=== PATIENT | male | born 1930 | race African-American/Black ===

== ENCOUNTER 2019-05-17 12:22 | Inpatient (IN) ==
[2019-05-17] MEDS ORDERED: PANTOPRAZOLE 40 MG VIAL IV STA (12:46)
[2019-05-17] MEDS ORDERED: SODIUM CHLORIDE 0.9% 500 ML IV STA (12:46)
[2019-05-17 13:06] LABS: Apearance,Urine CLEAR (Clear); Bilirubin,Urine Negative (Negative); Blood, Urine Negative (Negative); Glucose,Urine (UA) Negative (Negative); Ketones,Urine 20 mg/dL (Negative); Mucus,Urine Occasional /LPF (Occasional); Nitrite,Urine Negative (Negative); Protein,Urine Negative; RBC,Urine 3 /HPF (0-4); Squamous Epithelial Cell,Urine Occasional /HPF (0-10); Urine Color Yellow (Yellow); Urine Specific Gravity 1.015 (1.001-1.035); Urine Urobilinogen < 2.0 EU/DL (0.2-1.0)
[2019-05-17 13:22] LABS: Alanine Aminotransferase 11 U/L (16-61); Albumin 3.9 G/DL (3.4-5.0); Alkaline Phosphatase 100 U/L (45-117); Amylase 32 U/L (25-115); Aspartate Amino Transferase 14 U/L (0-37); Blood Urea Nitrogen 12 MG/DL (7-18); Calcium 9.4 MG/DL (8.5-10.1); Glucose 112 MG/DL (74-106); Osmolality,Calculated 273.8 MOS/KG (273-304); Total Protein 8.5 G/DL (6.4-8.3)
[2019-05-17 13:24] LABS: Troponin I < 0.015 NG/ML (0.00-0.045)
[2019-05-17 13:28] LABS: Basophils % 0.1 % (0.0-0.8); Hematocrit 27.2 VOL% (42.0-52.0); Hemoglobin 7.4 GM/DL (14.0-18.0); Immature Granulocytes % 0.7 %; Lymphocytes # 0.7 10*3/uL (1.4-4.0); Lymphocytes % 4.6 % (21.2-54.2); Mean Corpuscular HGB Conc 27.2 GM/DL (32-36); Mean Corpuscular Volume 71.2 FL (87-102); Mean Platelet Volume 9.8 FL (9.6-12.0); Monocytes % 4.9 % (1.7-12.7); Neutrophils % 89.7 % (38.7-73.9); Platelet Count 342 T/CUMM (130-400); Red Blood Count 3.82 MC/CUMM (3.8-5.5); Red Cell Distribution Width 20.8 % (9.3-17.3); White Blood Count 15.4 T/CUMM (4-12)
[2019-05-17] MEDS ORDERED: MAGNESIUM CITRATE 300 ML BOTTLE PO STA (14:27)
[2019-05-17 14:29] LABS: Band Neutrophils 1 % (0-10); Lymphocytes 3 % (20-55); Segmented Neutrophils 91 % (50-85); Total Cells Counted 100
[2019-05-17 14:30] LABS: Hypochromasia 2+; Microcytosis 1+
[2019-05-17 14:31] LABS: Helmet Cells Few; Ovalocytes Few; Target Cells 1+
[2019-05-17 14:32] LABS: Platelet Estimate Adequate; Poikilocytosis Few; Schistocytes Few
[2019-05-17] MEDS ORDERED: SODIUM CHLORIDE 0.9% 1,000 ML IV PRN (14:32)
[2019-05-17] MEDS ORDERED: ACETAMINOPHEN 325 MG TABLET PO PRN (14:39)
[2019-05-17] MEDS ORDERED: traZODone 50 MG TABLET PO PRN (14:39)
[2019-05-17] MEDS ORDERED: ZALEPLON 5 MG CAPSULE PO PRN (14:39)
[2019-05-17] MEDS ORDERED: diphenhydrAMINE CAP 25 MG CAPSULE PO PRN (14:39)
[2019-05-17] MEDS ORDERED: guaiFENesin/DM ER 600-30 MG TABLET PO PRN (14:39)
[2019-05-17] MEDS ORDERED: PROMETHAZINE 25 MG/1 ML VIAL IM PRN (14:39)
[2019-05-17] MEDS ORDERED: diphenhydrAMINE CAP 25 MG CAPSULE PO SCH (15:00)
[2019-05-17] MEDS ORDERED: ACETAMINOPHEN 325 MG TABLET PO SCH (15:00)
[2019-05-17] MEDS ORDERED: FUROSEMIDE 20 MG/2 ML VIAL IV SCH (15:00)
[2019-05-17] MEDS: ONDANSETRON 4 MG/2 ML VIAL IV PRN (21:15)
[2019-05-17] MEDS: DOCUSATE SODIUM 100 MG CAPSULE PO SCH (21:17)
[2019-05-17] MEDS: SODIUM CHLORIDE 0.45% 1,000 ML IV SCH (21:17)
[2019-05-18 05:21] LABS: Basophils % 0.1 % (0.0-0.8); Hemoglobin 7.6 GM/DL (14.0-18.0); Immature Granulocytes % 0.6 %; Lymphocytes # 0.6 10*3/uL (1.4-4.0); Lymphocytes % 3.9 % (21.2-54.2); Mean Corpuscular HGB Conc 29.2 GM/DL (32-36); Mean Corpuscular Volume 71.4 FL (87-102); Mean Platelet Volume 9.7 FL (9.6-12.0); Monocytes % 6.5 % (1.7-12.7); Neutrophils % 88.9 % (38.7-73.9); Platelet Count 298 T/CUMM (130-400); Red Blood Count 3.64 MC/CUMM (3.8-5.5); White Blood Count 16.3 T/CUMM (4-12)
[2019-05-18 05:54] LABS: % Iron Saturation 4.9 % (18-50)
[2019-05-18 05:55] LABS: Band Neutrophils 3 % (0-10); Lymphocytes 2 % (20-55); Segmented Neutrophils 91 % (50-85); Total Cells Counted 100
[2019-05-18 05:56] LABS: Hypochromasia 2+; Microcytosis 1+; Ovalocytes Slight; Platelet Estimate Adequate
[2019-05-18 05:58] LABS: Alanine Aminotransferase < 9 U/L (16-61); Albumin 3.2 G/DL (3.4-5.0); Alkaline Phosphatase 87 U/L (45-117); Aspartate Amino Transferase 9 U/L (0-37); Blood Urea Nitrogen 8 MG/DL (7-18); Calcium 8.9 MG/DL (8.5-10.1); Glucose 117 MG/DL (74-106); HDL Cholesterol 57 MG/DL (40-60); Osmolality,Calculated 271.8 MOS/KG (273-304); Risk Ratio 2.18; Total Protein 7.6 G/DL (6.4-8.3); Triglycerides 42 MG/DL (2-150); VLDL CHOLESTEROL 8.4 MG/DL
[2019-05-18 06:00] LABS: Folate 14.6 NG/ML (5.4-24.0)
[2019-05-18] MEDS ORDERED: LACTATED RINGERS 1,000 ML IV SCH (08:00)
[2019-05-18] MEDS ORDERED: LIDOCAINE 2% 5 ML VIAL ONE (09:00)
[2019-05-18] MEDS ORDERED: PROPOFOL 200 MG/20 ML VIAL IV ONE (09:00)
[2019-05-18] MEDS ORDERED: ETOMIDATE 20 MG/10 ML VIAL IV ONE (09:00)
[2019-05-18] MEDS ORDERED: POTASSIUM CHLORIDE RIDER 10 MEQ in PREMIX 1 EACH IV ONE (09:33)
[2019-05-18] MEDS: DOCUSATE SODIUM 100 MG CAPSULE PO SCH ×2 (12:08→21:34)
[2019-05-18] MEDS: PANTOPRAZOLE 40 MG TABLET PO SCH (12:08)
[2019-05-18] MEDS: FINASTERIDE 5 MG TABLET PO SCH (12:08)
[2019-05-18] MEDS: SODIUM CHLORIDE 0.45% 1,000 ML IV SCH (16:04)
[2019-05-18] MEDS: CYANOCOBALAMIN 1000 MCG/1 ML VIAL SUBCUT SCH (16:15)
[2019-05-18] MEDS: PIPERACILLIN/TAZOBACTAM 3,375 MG in SODIUM CHLORIDE 0.9% 100 ML IV SCH (18:09)
[2019-05-18 18:16] LABS: Hematocrit 29.4 VOL% (42.0-52.0); Hemoglobin 8.6 GM/DL (14.0-18.0)
[2019-05-19] MEDS: PIPERACILLIN/TAZOBACTAM 3,375 MG in SODIUM CHLORIDE 0.9% 100 ML IV SCH ×3 (02:15→17:43)
[2019-05-19] MEDS: SODIUM CHLORIDE 0.45% 1,000 ML IV SCH (06:32)
[2019-05-19 07:15] LABS: Calcium 9.1 MG/DL (8.5-10.1); Osmolality,Calculated 270.8 MOS/KG (273-304)
[2019-05-19 07:16] LABS: Basophils % 0.3 % (0.0-0.8); Eosinophils % 0.3 % (0.00-10.9); Hematocrit 28.7 VOL% (42.0-52.0); Hemoglobin 8.5 GM/DL (14.0-18.0); Immature Granulocytes % 0.3 %; Immature Granulocytes Absolute 0.05 #; Lymphocytes # 0.7 10*3/uL (1.4-4.0); Lymphocytes % 4.7 % (21.2-54.2); Mean Corpuscular HGB Conc 29.6 GM/DL (32-36); Mean Corpuscular Volume 73.6 FL (87-102); Mean Platelet Volume 10.1 FL (9.6-12.0); Monocytes % 3.3 % (1.7-12.7); Neutrophils % 91.1 % (38.7-73.9); Platelet Count 284 T/CUMM (130-400); Red Cell Distribution Width 21.8 % (9.3-17.3); White Blood Count 15.7 T/CUMM (4-12)
[2019-05-19 07:17] LABS: Albumin 2.7 G/DL (3.4-5.0); Bilirubin,Total 2.8 MG/DL (0.2-1.0); Calcium 8.7 MG/DL (8.5-10.1); Osmolality,Calculated 267.1 MOS/KG (273-304); Total Protein 6.9 G/DL (6.4-8.3)
[2019-05-19] MEDS ORDERED: POTASSIUM CHLORIDE 20 MEQ TABLET PO ONE (09:34)
[2019-05-19] MEDS ORDERED: MAGNESIUM SULF RIDER 2 GM in PREMIX 1 EACH IV ONE (09:34)
[2019-05-19] MEDS: DOCUSATE SODIUM 100 MG CAPSULE PO SCH ×2 (09:35→20:11)
[2019-05-19] MEDS: PANTOPRAZOLE 40 MG TABLET PO SCH (09:35)
[2019-05-19] MEDS: CYANOCOBALAMIN 1000 MCG/1 ML VIAL SUBCUT SCH (09:35)
[2019-05-19] MEDS: FINASTERIDE 5 MG TABLET PO SCH (09:35)
[2019-05-19 10:22] LABS: Hypochromasia 3+; Lymphocytes 4 % (20-55); Microcytosis Slight; Poikilocytosis 1+; Segmented Neutrophils 91 % (50-85); Total Cells Counted 100
[2019-05-19 10:23] LABS: Acanthocytes Few; Ovalocytes Few; Platelet Estimate Normal; Polychromasia Slight; Spherocytes Few
[2019-05-19] MEDS ORDERED: MAGNESIUM CITRATE 300 ML BOTTLE PO ONE (16:00)
[2019-05-20] MEDS: PIPERACILLIN/TAZOBACTAM 3,375 MG in SODIUM CHLORIDE 0.9% 100 ML IV SCH ×3 (02:21→17:25)
[2019-05-20 05:34] LABS: Basophils % 0.4 % (0.0-0.8); Eosinophils # 0.2 10*3/uL (0.0-0.87); Eosinophils % 1.9 % (0.00-10.9); Hematocrit 27.5 VOL% (42.0-52.0); Immature Granulocytes % 0.5 %; Immature Granulocytes Absolute 0.05 #; Lymphocytes % 9.2 % (21.2-54.2); Mean Corpuscular HGB Conc 29.1 GM/DL (32-36); Mean Corpuscular Volume 74.3 FL (87-102); Mean Platelet Volume 9.3 FL (9.6-12.0); Monocytes % 5.3 % (1.7-12.7); Neutrophils % 82.7 % (38.7-73.9); Platelet Count 269 T/CUMM (130-400); Red Cell Distribution Width 21.9 % (9.3-17.3); White Blood Count 10.5 T/CUMM (4-12)
[2019-05-20 06:08] LABS: Alanine Aminotransferase < 9 U/L (16-61); Albumin 2.5 G/DL (3.4-5.0); Alkaline Phosphatase 77 U/L (45-117); Aspartate Amino Transferase 13 U/L (0-37); Blood Urea Nitrogen 11 MG/DL (7-18); Calcium 8.9 MG/DL (8.5-10.1); Glucose 82 MG/DL (74-106); Osmolality,Calculated 274.5 MOS/KG (273-304); Total Protein 6.6 G/DL (6.4-8.3)
[2019-05-20] MEDS: DOCUSATE SODIUM 100 MG CAPSULE PO SCH ×2 (09:06→20:40)
[2019-05-20] MEDS: PANTOPRAZOLE 40 MG TABLET PO SCH (09:06)
[2019-05-20] MEDS: CYANOCOBALAMIN 1000 MCG/1 ML VIAL SUBCUT SCH (09:06)
[2019-05-20] MEDS: FINASTERIDE 5 MG TABLET PO SCH (09:07)
[2019-05-20] MEDS: FERROUS SULFATE ER 140 MG TABLET PO SCH (09:07)
[2019-05-20] MEDS ORDERED: BISACODYL 5 MG TABLET PO ONE (12:00)
[2019-05-20] MEDS: SODIUM CHLORIDE 0.45% 1,000 ML IV SCH ×2 (15:25→23:50)
[2019-05-20] MEDS: POTASSIUM CHLORIDE 20 MEQ TABLET PO PRN (15:32)
[2019-05-20] MEDS ORDERED: POLYETHYLENE GLYCOL POWDER 255 GM BOTTLE PO ONE (18:00)
[2019-05-21] MEDS: PIPERACILLIN/TAZOBACTAM 3,375 MG in SODIUM CHLORIDE 0.9% 100 ML IV SCH (03:29)
[2019-05-21 05:38] LABS: Basophils % 0.6 % (0.0-0.8); Eosinophils # 0.3 10*3/uL (0.0-0.87); Eosinophils % 4.6 % (0.00-10.9); Hematocrit 28.2 VOL% (42.0-52.0); Hemoglobin 8.1 GM/DL (14.0-18.0); Immature Granulocytes % 0.4 %; Immature Granulocytes Absolute 0.03 #; Lymphocytes # 1.1 10*3/uL (1.4-4.0); Lymphocytes % 16.3 % (21.2-54.2); Mean Corpuscular HGB Conc 28.7 GM/DL (32-36); Mean Corpuscular Volume 74.4 FL (87-102); Mean Platelet Volume 9.2 FL (9.6-12.0); Monocytes % 9.4 % (1.7-12.7); Neutrophils % 68.7 % (38.7-73.9); Platelet Count 285 T/CUMM (130-400); Red Blood Count 3.79 MC/CUMM (3.8-5.5); Red Cell Distribution Width 22.2 % (9.3-17.3); White Blood Count 6.8 T/CUMM (4-12)
[2019-05-21 06:02] LABS: Hypochromasia 2+
[2019-05-21 06:03] LABS: Anisocytosis 1+; Microcytosis 1+; Ovalocytes Few; Spherocytes Slight; Target Cells Slight
[2019-05-21 06:04] LABS: Platelet Estimate Normal
[2019-05-21 06:13] LABS: Albumin 2.6 G/DL (3.4-5.0); Bilirubin,Total 0.9 MG/DL (0.2-1.0); Calcium 8.8 MG/DL (8.5-10.1); Osmolality,Calculated 272.5 MOS/KG (273-304); Total Protein 6.9 G/DL (6.4-8.3)
[2019-05-21] MEDS ORDERED: POLYETHYLENE GLYCOL POWDER 255 GM BOTTLE PO ONE (08:52)
[2019-05-21] MEDS: PANTOPRAZOLE 40 MG TABLET PO SCH (09:26)
[2019-05-21] MEDS: FINASTERIDE 5 MG TABLET PO SCH (09:26)
[2019-05-21] MEDS: DOCUSATE SODIUM 100 MG CAPSULE PO SCH ×2 (09:26→20:42)
[2019-05-21] MEDS: CYANOCOBALAMIN 1000 MCG/1 ML VIAL SUBCUT SCH (09:27)
[2019-05-21] MEDS: FERROUS SULFATE ER 140 MG TABLET PO SCH (09:31)
[2019-05-21] MEDS: AMPICILLIN INJ 1,000 MG in SODIUM CHLORIDE 0.9% 100 ML IV SCH ×3 (13:17→21:26)
[2019-05-21] MEDS: SODIUM CHLORIDE 0.45% 1,000 ML IV SCH ×2 (17:56→19:55)
[2019-05-22] MEDS: AMPICILLIN INJ 1,000 MG in SODIUM CHLORIDE 0.9% 100 ML IV SCH (04:15)
[2019-05-22 05:14] LABS: PT Patient Result 11.2 SECS
[2019-05-22 05:16] LABS: Calcium 9.3 MG/DL (8.5-10.1); Osmolality,Calculated 274.4 MOS/KG (273-304)
[2019-05-22 05:31] LABS: Basophils # 0.1 10*3/uL (0.0-0.2); Basophils % 1.4 % (0.0-0.8); Eosinophils # 0.5 10*3/uL (0.0-0.87); Hemoglobin 8.8 GM/DL (14.0-18.0); Immature Granulocytes % 0.5 %; Immature Granulocytes Absolute 0.03 #; Lymphocytes # 1.2 10*3/uL (1.4-4.0); Lymphocytes % 20.6 % (21.2-54.2); Mean Corpuscular HGB Conc 28.4 GM/DL (32-36); Mean Corpuscular Volume 75.4 FL (87-102); Mean Platelet Volume 9.8 FL (9.6-12.0); Monocytes % 11.2 % (1.7-12.7); Neutrophils % 58.3 % (38.7-73.9); Platelet Count 292 T/CUMM (130-400); Red Blood Count 4.11 MC/CUMM (3.8-5.5); Red Cell Distribution Width 22.5 % (9.3-17.3); White Blood Count 5.6 T/CUMM (4-12)
[2019-05-22 06:01] LABS: Anisocytosis 1+; Hypochromasia 2+; Microcytosis 1+
[2019-05-22 06:02] LABS: Ovalocytes Few; Platelet Estimate Normal; Target Cells Slight
[2019-05-22] MEDS ORDERED: LIDOCAINE 2% 5 ML VIAL ONE (09:00)
[2019-05-22] MEDS ORDERED: PROPOFOL 200 MG/20 ML VIAL IV ONE (09:00)
[2019-05-22] MEDS: AMPICILLIN/SULBACTAM 3,000 MG in SODIUM CHLORIDE 0.9% 100 ML IV SCH ×3 (17:29→21:36)
[2019-05-22] MEDS: DOCUSATE SODIUM 100 MG CAPSULE PO SCH ×2 (17:30→20:51)
[2019-05-22] MEDS: SODIUM CHLORIDE 0.45% 1,000 ML IV SCH (17:40)
[2019-05-22] MEDS: PANTOPRAZOLE 40 MG TABLET PO SCH (17:46)
[2019-05-22] MEDS: FINASTERIDE 5 MG TABLET PO SCH (17:46)
[2019-05-22] MEDS: FERROUS SULFATE ER 140 MG TABLET PO SCH (17:47)
[2019-05-22] MEDS: CYANOCOBALAMIN 1000 MCG/1 ML VIAL SUBCUT SCH (17:47)
[2019-05-23] MEDS: AMPICILLIN/SULBACTAM 3,000 MG in SODIUM CHLORIDE 0.9% 100 ML IV SCH ×4 (03:54→22:17)
[2019-05-23 05:04] LABS: Basophils # 0.1 10*3/uL (0.0-0.2); Basophils % 0.9 % (0.0-0.8); Eosinophils # 0.3 10*3/uL (0.0-0.87); Eosinophils % 4.9 % (0.00-10.9); Hematocrit 28.3 VOL% (42.0-52.0); Hemoglobin 8.2 GM/DL (14.0-18.0); Immature Granulocytes % 0.5 %; Immature Granulocytes Absolute 0.03 #; Lymphocytes # 1.1 10*3/uL (1.4-4.0); Lymphocytes % 17.5 % (21.2-54.2); Mean Corpuscular Volume 74.7 FL (87-102); Mean Platelet Volume 9.5 FL (9.6-12.0); Monocytes % 10.4 % (1.7-12.7); Neutrophils % 65.8 % (38.7-73.9); Platelet Count 315 T/CUMM (130-400); Red Blood Count 3.79 MC/CUMM (3.8-5.5); Red Cell Distribution Width 22.2 % (9.3-17.3); White Blood Count 6.3 T/CUMM (4-12)
[2019-05-23 05:17] LABS: Albumin 2.8 G/DL (3.4-5.0); Bilirubin,Total 0.8 MG/DL (0.2-1.0); Calcium 9.4 MG/DL (8.5-10.1); Osmolality,Calculated 271.5 MOS/KG (273-304); Total Protein 6.9 G/DL (6.4-8.3)
[2019-05-23 06:19] LABS: Anisocytosis 1+
[2019-05-23 06:20] LABS: Hypochromasia 1+; Platelet Estimate Adequate; Target Cells Few
[2019-05-23] MEDS: FERROUS SULFATE ER 140 MG TABLET PO SCH (09:07)
[2019-05-23] MEDS: PANTOPRAZOLE 40 MG TABLET PO SCH (09:07)
[2019-05-23] MEDS: FINASTERIDE 5 MG TABLET PO SCH (09:07)
[2019-05-23] MEDS: DOCUSATE SODIUM 100 MG CAPSULE PO SCH ×2 (09:07→20:28)
[2019-05-23] MEDS: CYANOCOBALAMIN 1000 MCG/1 ML VIAL SUBCUT SCH (09:08)
[2019-05-23 11:45] LABS: Total Protein (Chem) 8.1 G/DL (6.4-8.3)
[2019-05-23] MEDS: SODIUM CHLORIDE 0.45% 1,000 ML IV SCH (20:29)
[2019-05-24] MEDS: AMPICILLIN/SULBACTAM 3,000 MG in SODIUM CHLORIDE 0.9% 100 ML IV SCH ×3 (04:13→18:58)
[2019-05-24 05:12] LABS: Basophils # 0.1 10*3/uL (0.0-0.2); Basophils % 1.3 % (0.0-0.8); Eosinophils # 0.3 10*3/uL (0.0-0.87); Hemoglobin 8.2 GM/DL (14.0-18.0); Immature Granulocytes % 0.4 %; Immature Granulocytes Absolute 0.02 #; Lymphocytes # 1.1 10*3/uL (1.4-4.0); Lymphocytes % 20.1 % (21.2-54.2); Mean Corpuscular HGB Conc 29.3 GM/DL (32-36); Mean Corpuscular Volume 74.7 FL (87-102); Mean Platelet Volume 9.6 FL (9.6-12.0); Monocytes % 9.9 % (1.7-12.7); Neutrophils % 63.3 % (38.7-73.9); Platelet Count 322 T/CUMM (130-400); Red Blood Count 3.75 MC/CUMM (3.8-5.5); Red Cell Distribution Width 22.4 % (9.3-17.3); White Blood Count 5.6 T/CUMM (4-12)
[2019-05-24 05:42] LABS: Osmolality,Calculated 270.7 MOS/KG (273-304)
[2019-05-24 05:43] LABS: Band Neutrophils 1 % (0-10); Eosinophils 2 % (0-10); Lymphocytes 16 % (20-55); Total Cells Counted 100
[2019-05-24 05:44] LABS: Hypochromasia 3+; Platelet Estimate Normal
[2019-05-24 05:45] LABS: Burr Cells Few; Ovalocytes 2+; Poikilocytosis Few; Schistocytes Few
[2019-05-24 05:46] LABS: Segmented Neutrophils 75 % (50-85)
[2019-05-24] MEDS ORDERED: fentaNYL 100 MCG/2 ML VIAL ONE (08:07)
[2019-05-24] MEDS ORDERED: MIDAZOLAM 2 MG/2 ML VIAL ONE (08:07)
[2019-05-24 08:10] LABS: Albumin (SPE) Rel % 57.9 %; Alpha 1 (SPE) Rel % 3.1 %; Alpha 2 (SPE) Rel % 8.9 %; Beta (SPE) Rel % 8.9 %; Gamma (SPE) Rel % 21.2 %
[2019-05-24 08:24] LABS: Albumin (SPE) 4.7 G/DL (3.2-5.3); Alpha 1 (SPE) 0.3 G/DL (0.1-0.4); Alpha 2 (SPE) 0.7 G/DL (0.4-1.0); Beta (SPE) 0.7 G/DL (0.5-1.1); Gamma (SPE) 1.7 G/DL (0.7-1.7)
[2019-05-24] MEDS ORDERED: DEXAMETHASONE 4 MG/1 ML VIAL ONE (09:00)
[2019-05-24] MEDS ORDERED: EPINEPHrine 1 MG/ML VIAL ONE (09:00)
[2019-05-24] MEDS ORDERED: BUPIVACAINE 0.5% 50 ML VIAL ONE (09:00)
[2019-05-24] MEDS ORDERED: SODIUM CHLORIDE 0.9% 100 ML IV ONE (09:01)
[2019-05-24] MEDS ORDERED: MICROFIBRILLAR COLLAGEN POWDER 1 GM CAN TOP ONE (11:00)
[2019-05-24] MEDS: SODIUM CHLORIDE 0.45% 1,000 ML IV SCH (11:26)
[2019-05-24] MEDS: DOCUSATE SODIUM 100 MG CAPSULE PO SCH ×2 (11:26→21:55)
[2019-05-24] MEDS: CYANOCOBALAMIN 1000 MCG/1 ML VIAL SUBCUT SCH (11:27)
[2019-05-24] MEDS: PANTOPRAZOLE 40 MG TABLET PO SCH (11:27)
[2019-05-24] MEDS: FINASTERIDE 5 MG TABLET PO SCH (11:27)
[2019-05-24] MEDS: FERROUS SULFATE ER 140 MG TABLET PO SCH (11:27)
[2019-05-24] MEDS ORDERED: ONDANSETRON 4 MG/2 ML VIAL IV PRN (11:45)
[2019-05-24] MEDS ORDERED: HYDROmorphone 2 MG/1 ML VIAL ONE (11:48)
[2019-05-24] MEDS ORDERED: ONDANSETRON 4 MG/2 ML VIAL ONE ×2 (11:48→12:21)
[2019-05-24] MEDS: HYDROmorphone 2 MG/1 ML VIAL IV PRN ×4 (11:48→12:03)
[2019-05-24 11:54] LABS: Apearance,Urine CLEAR (Clear); Bilirubin,Urine Negative (Negative); Blood, Urine Negative (Negative); Glucose,Urine (UA) Negative (Negative); Ketones,Urine 5 mg/dL (Negative); Nitrite,Urine Negative (Negative); Protein,Urine Negative; RBC,Urine <1 /HPF (0-4); Squamous Epithelial Cell,Urine Occasional /HPF (0-10); Urine Color Straw (Yellow); Urine Specific Gravity 1.009 (1.001-1.035); Urine Urobilinogen < 2.0 EU/DL (0.2-1.0); WBC,Urine <1 /HPF (0-6)
[2019-05-24 12:20] LABS: Immuno Free Light Chain Kappa 5.44 MG/DL (0.33-1.94); Immuno Free Light Chain Lambda 2.33 MG/DL (0.57-2.63); Immuno Free Light Chain Ratio 2.33 MG/DL (0.26-1.65)
[2019-05-24] MEDS ORDERED: KETAMINE 500 MG/10 ML VIAL ONE (12:21)
[2019-05-24] MEDS ORDERED: LACTATED RINGERS 1,000 ML IV ONE (12:21)
[2019-05-24] MEDS ORDERED: NEOSTIGMINE 10 MG/10 ML VIAL ONE (12:21)
[2019-05-24] MEDS ORDERED: SEVOFLURANE 1 UNIT/15 MINUTE INH ONE (12:21)
[2019-05-24] MEDS ORDERED: PROPOFOL 200 MG/20 ML VIAL IV ONE (12:21)
[2019-05-24] MEDS ORDERED: ROCURONIUM 100 MG/10 ML VIAL IV ONE (12:21)
[2019-05-24] MEDS ORDERED: GLYCOPYRROLATE 0.4 MG/2 ML VIAL ONE (12:21)
[2019-05-24] MEDS ORDERED: MORPHINE 4 MG/1 ML VIAL IV PRN (12:36)
[2019-05-24 13:16] LABS: Hematocrit 33.2 VOL% (42.0-52.0)
[2019-05-24 13:17] LABS: Hemoglobin 9.3 GM/DL (14.0-18.0)
[2019-05-24] MEDS: DEXTROSE 5% NACL 0.9% 1,000 ML IV SCH ×2 (13:25→21:33)
[2019-05-24 15:37] LABS: Total Protein 24 Hr Ur Result 315 MG/24HR (0-149.1); Total Volume,Urine 2425 ML (400-2000)
[2019-05-24] MEDS ORDERED: hydrALAZINE 20 MG/1 ML VIAL IV PRN (17:49)
[2019-05-24 19:59] LABS: Apearance,Urine CLEAR (Clear); Bilirubin,Urine Negative (Negative); Blood, Urine Moderate mg/dL (Negative); Glucose,Urine (UA) Negative (Negative); Ketones,Urine 5 mg/dL (Negative); Mucus,Urine Occasional /LPF (Occasional); Nitrite,Urine Negative (Negative); Protein,Urine Negative; RBC,Urine 24 /HPF (0-4); Squamous Epithelial Cell,Urine Occasional /HPF (0-10); Urine Color Yellow (Yellow); Urine Specific Gravity 1.016 (1.001-1.035); Urine Urobilinogen < 2.0 EU/DL (0.2-1.0); WBC,Urine 22 /HPF (0-6)
[2019-05-24 21:34] LABS: Hematocrit 32.8 VOL% (42.0-52.0)
[2019-05-24 21:36] LABS: Hemoglobin 9.1 GM/DL (14.0-18.0)
[2019-05-25] MEDS: AMPICILLIN/SULBACTAM 3,000 MG in SODIUM CHLORIDE 0.9% 100 ML IV SCH ×4 (00:22→19:42)
[2019-05-25] MEDS: SODIUM CHLORIDE 0.45% 1,000 ML IV SCH (00:40)
[2019-05-25 03:25] LABS: Basophils % 0.2 % (0.0-0.8); Hematocrit 28.2 VOL% (42.0-52.0); Hemoglobin 8.1 GM/DL (14.0-18.0); Immature Granulocytes % 0.4 %; Immature Granulocytes Absolute 0.05 #; Lymphocytes # 0.9 10*3/uL (1.4-4.0); Lymphocytes % 7.5 % (21.2-54.2); Mean Corpuscular HGB Conc 28.7 GM/DL (32-36); Mean Platelet Volume 9.2 FL (9.6-12.0); Monocytes % 8.4 % (1.7-12.7); Neutrophils % 83.5 % (38.7-73.9); Platelet Count 321 T/CUMM (130-400); Red Blood Count 3.76 MC/CUMM (3.8-5.5); Red Cell Distribution Width 22.1 % (9.3-17.3); White Blood Count 11.5 T/CUMM (4-12)
[2019-05-25 03:46] LABS: Calcium 8.7 MG/DL (8.5-10.1); Osmolality,Calculated 275.7 MOS/KG (273-304)
[2019-05-25 04:15] LABS: Hypochromasia 1+
[2019-05-25 04:16] LABS: Ovalocytes Slight; Platelet Estimate Adequate
[2019-05-25] MEDS: DEXTROSE 5% NACL 0.9% 1,000 ML IV SCH ×3 (06:22→15:28)
[2019-05-25] MEDS: PANTOPRAZOLE 40 MG TABLET PO SCH (09:15)
[2019-05-25] MEDS: DOCUSATE SODIUM 100 MG CAPSULE PO SCH ×2 (09:15→20:46)
[2019-05-25] MEDS: FINASTERIDE 5 MG TABLET PO SCH (09:15)
[2019-05-25] MEDS: CYANOCOBALAMIN 1000 MCG/1 ML VIAL SUBCUT SCH (09:15)
[2019-05-25] MEDS: FERROUS SULFATE ER 140 MG TABLET PO SCH (09:15)
[2019-05-25 09:32] LABS: 24 Hr Protein (Bench) 315 MG/24HR (0-149.1)
[2019-05-26] MEDS: AMPICILLIN/SULBACTAM 3,000 MG in SODIUM CHLORIDE 0.9% 100 ML IV SCH ×4 (00:43→18:26)
[2019-05-26] MEDS: DEXTROSE 5% NACL 0.9% 1,000 ML IV SCH ×2 (02:55→13:36)
[2019-05-26 05:06] LABS: Basophils % 0.2 % (0.0-0.8); Eosinophils # 0.1 10*3/uL (0.0-0.87); Eosinophils % 1.2 % (0.00-10.9); Hematocrit 27.1 VOL% (42.0-52.0); Immature Granulocytes % 0.5 %; Immature Granulocytes Absolute 0.04 #; Lymphocytes # 0.8 10*3/uL (1.4-4.0); Lymphocytes % 8.8 % (21.2-54.2); Mean Corpuscular HGB Conc 29.5 GM/DL (32-36); Mean Corpuscular Volume 75.5 FL (87-102); Mean Platelet Volume 9.8 FL (9.6-12.0); Monocytes % 8.7 % (1.7-12.7); Neutrophils % 80.6 % (38.7-73.9); Platelet Count 279 T/CUMM (130-400); Red Blood Count 3.59 MC/CUMM (3.8-5.5); Red Cell Distribution Width 22.4 % (9.3-17.3); White Blood Count 8.5 T/CUMM (4-12)
[2019-05-26 05:43] LABS: Albumin 2.3 G/DL (3.4-5.0); Bilirubin,Total 0.7 MG/DL (0.2-1.0); Calcium 8.6 MG/DL (8.5-10.1); Osmolality,Calculated 274.5 MOS/KG (273-304); Total Protein 6.1 G/DL (6.4-8.3)
[2019-05-26] MEDS: DOCUSATE SODIUM 100 MG CAPSULE PO SCH ×2 (09:18→20:23)
[2019-05-26] MEDS: ENOXAPARIN 40 MG/0.4 ML SYRINGE SUBCUT SCH (09:18)
[2019-05-26] MEDS: PANTOPRAZOLE 40 MG TABLET PO SCH (09:19)
[2019-05-26] MEDS: FINASTERIDE 5 MG TABLET PO SCH (09:19)
[2019-05-26] MEDS: FERROUS SULFATE ER 140 MG TABLET PO SCH (09:19)
[2019-05-27] MEDS: AMPICILLIN/SULBACTAM 3,000 MG in SODIUM CHLORIDE 0.9% 100 ML IV SCH ×4 (00:40→18:33)
[2019-05-27] MEDS: DEXTROSE 5% NACL 0.9% 1,000 ML IV SCH ×3 (01:53→23:20)
[2019-05-27 05:21] LABS: Basophils % 0.4 % (0.0-0.8); Eosinophils # 0.1 10*3/uL (0.0-0.87); Eosinophils % 1.5 % (0.00-10.9); Hematocrit 27.7 VOL% (42.0-52.0); Hemoglobin 8.1 GM/DL (14.0-18.0); Immature Granulocytes % 0.4 %; Immature Granulocytes Absolute 0.03 #; Lymphocytes # 0.8 10*3/uL (1.4-4.0); Lymphocytes % 10.9 % (21.2-54.2); Mean Corpuscular HGB Conc 29.2 GM/DL (32-36); Mean Corpuscular Volume 75.5 FL (87-102); Mean Platelet Volume 9.8 FL (9.6-12.0); Monocytes % 8.6 % (1.7-12.7); Neutrophils % 78.2 % (38.7-73.9); Platelet Count 331 T/CUMM (130-400); Red Blood Count 3.67 MC/CUMM (3.8-5.5); Red Cell Distribution Width 22.4 % (9.3-17.3); White Blood Count 7.1 T/CUMM (4-12)
[2019-05-27] MEDS: ONDANSETRON 4 MG/2 ML VIAL IV PRN (06:08)
[2019-05-27 06:59] LABS: Anisocytosis 2+; Hypochromasia 2+; Platelet Estimate Normal; Poikilocytosis 1+
[2019-05-27] MEDS: FINASTERIDE 5 MG TABLET PO SCH (08:44)
[2019-05-27] MEDS: DOCUSATE SODIUM 100 MG CAPSULE PO SCH ×2 (08:45→21:02)
[2019-05-27] MEDS: PANTOPRAZOLE 40 MG TABLET PO SCH (08:45)
[2019-05-27] MEDS: FERROUS SULFATE ER 140 MG TABLET PO SCH (08:45)
[2019-05-27] MEDS: ENOXAPARIN 40 MG/0.4 ML SYRINGE SUBCUT SCH (08:48)
[2019-05-28] MEDS: AMPICILLIN/SULBACTAM 3,000 MG in SODIUM CHLORIDE 0.9% 100 ML IV SCH ×4 (01:05→19:26)
[2019-05-28] MEDS: PANTOPRAZOLE 40 MG TABLET PO SCH (10:02)
[2019-05-28] MEDS: DOCUSATE SODIUM 100 MG CAPSULE PO SCH ×2 (10:02→20:48)
[2019-05-28] MEDS: ENOXAPARIN 40 MG/0.4 ML SYRINGE SUBCUT SCH (10:02)
[2019-05-28] MEDS: FERROUS SULFATE ER 140 MG TABLET PO SCH (10:03)
[2019-05-28] MEDS: FINASTERIDE 5 MG TABLET PO SCH (10:03)
[2019-05-28] MEDS: DEXTROSE 5% NACL 0.9% 1,000 ML IV SCH ×2 (10:29→19:27)
[2019-05-28 10:40] LABS: Basophils % 0.6 % (0.0-0.8); Red Cell Distribution Width 22.4 % (9.3-17.3)
[2019-05-28 10:44] LABS: Eosinophils # 0.2 10*3/uL (0.0-0.87); Eosinophils % 3.5 % (0.00-10.9); Hematocrit 24.8 VOL% (42.0-52.0); Immature Granulocytes % 0.4 %; Immature Granulocytes Absolute 0.02 #; Lymphocytes # 0.8 10*3/uL (1.4-4.0); Lymphocytes % 14.4 % (21.2-54.2); Mean Corpuscular HGB Conc 29.4 GM/DL (32-36); Mean Corpuscular Volume 76.1 FL (87-102); Mean Platelet Volume 9.3 FL (9.6-12.0); Monocytes % 8.3 % (1.7-12.7); Neutrophils % 72.8 % (38.7-73.9); Platelet Count 321 T/CUMM (130-400); Red Blood Count 3.26 MC/CUMM (3.8-5.5); White Blood Count 5.4 T/CUMM (4-12)
[2019-05-28 10:45] LABS: Hemoglobin 7.3 GM/DL (14.0-18.0)
[2019-05-28 10:58] LABS: Hypochromasia 1+; Platelet Estimate Adequate
[2019-05-28 11:58] LABS: Calcium 8.2 MG/DL (8.5-10.1); Osmolality,Calculated 271.7 MOS/KG (273-304)
[2019-05-28] MEDS ORDERED: SODIUM CHLORIDE 0.9% 1,000 ML IV PRN (14:49)
[2019-05-28] MEDS ORDERED: FUROSEMIDE 20 MG/2 ML VIAL IV PRN (14:49)
[2019-05-28] MEDS ORDERED: MAGNESIUM SULF RIDER 2 GM in PREMIX 1 EACH IV PRN (14:55)
[2019-05-28] MEDS ORDERED: MAGNESIUM SULF RIDER 4 GM in PREMIX 1 EACH IV PRN (14:55)
[2019-05-28] MEDS: POTASSIUM BICARB EFFERVESCENT 25 MEQ TABLET PO SCH ×2 (15:28→22:00)
[2019-05-28] MEDS: POTASSIUM CHLORIDE 20 MEQ TABLET PO PRN ×3 (16:15→20:48)
[2019-05-29] MEDS ORDERED: FUROSEMIDE 20 MG/2 ML VIAL IV PRN (01:34)
[2019-05-29] MEDS: AMPICILLIN/SULBACTAM 3,000 MG in SODIUM CHLORIDE 0.9% 100 ML IV SCH ×3 (05:05→16:37)
[2019-05-29] MEDS: POTASSIUM CHLORIDE 20 MEQ TABLET PO PRN (05:05)
[2019-05-29 07:57] LABS: Basophils % 0.4 % (0.0-0.8); Eosinophils # 0.2 10*3/uL (0.0-0.87); Eosinophils % 2.3 % (0.00-10.9); Hematocrit 31.8 VOL% (42.0-52.0); Immature Granulocytes % 0.3 %; Immature Granulocytes Absolute 0.03 #; Lymphocytes # 1.3 10*3/uL (1.4-4.0); Lymphocytes % 13.1 % (21.2-54.2); Mean Corpuscular HGB Conc 30.8 GM/DL (32-36); Mean Corpuscular Volume 77.6 FL (87-102); Mean Platelet Volume 9.3 FL (9.6-12.0); Monocytes % 7.6 % (1.7-12.7); Neutrophils % 76.3 % (38.7-73.9); Platelet Count 350 T/CUMM (130-400)
[2019-05-29 08:01] LABS: White Blood Count 9.7 T/CUMM (4-12)
[2019-05-29 08:03] LABS: Hemoglobin 9.8 GM/DL (14.0-18.0)
[2019-05-29 08:34] LABS: Hypochromasia 1+; Ovalocytes Slight; Platelet Estimate Adequate
[2019-05-29] MEDS: FERROUS SULFATE ER 140 MG TABLET PO SCH (08:45)
[2019-05-29] MEDS: PANTOPRAZOLE 40 MG TABLET PO SCH (08:45)
[2019-05-29] MEDS: FINASTERIDE 5 MG TABLET PO SCH (08:45)
[2019-05-29] MEDS: DOCUSATE SODIUM 100 MG CAPSULE PO SCH ×2 (08:45→20:33)
[2019-05-29] MEDS: POTASSIUM BICARB EFFERVESCENT 25 MEQ TABLET PO SCH ×2 (08:47→20:33)
[2019-05-29] MEDS: ENOXAPARIN 40 MG/0.4 ML SYRINGE SUBCUT SCH (09:42)
[2019-05-30 06:05] LABS: Hematocrit 30.6 VOL% (42.0-52.0); Hemoglobin 9.5 GM/DL (14.0-18.0)
[2019-05-30] MEDS: FINASTERIDE 5 MG TABLET PO SCH (10:03)
[2019-05-30] MEDS: FERROUS SULFATE ER 140 MG TABLET PO SCH (10:04)
[2019-05-30] MEDS: DOCUSATE SODIUM 100 MG CAPSULE PO SCH (10:04)
[2019-05-30] MEDS: PANTOPRAZOLE 40 MG TABLET PO SCH (10:04)
[2019-05-30] MEDS: POTASSIUM BICARB EFFERVESCENT 25 MEQ TABLET PO SCH (10:19)
[2019-05-30 16:59] VITALS: BP 139/67
== END 2019-05-30 17:28 | disposition home health service (06) | DRG 330 ==
LOC: EDUNIT# → EDBD → N.EDINP 12:22 → N.ED 12:22 → N.3E 16:48 → SUATTDRO 05-18 15:31 → N.CC 05-24 12:23 → N.3E 05-25 19:09
PROVIDERS: ADMIT Internal Medicine; ATTEND Internal Medicine